=== PATIENT | female | born 1980 | race Caucasian/White ===

== ENCOUNTER 2017-01-27 21:13 | Emergency (ER) | payer SELFPAY ==
[2017-01-27] MEDS ORDERED: CATAPRES0.2 M1 PO (21:23)
[2017-01-27] MEDS ORDERED: LAMICTAL25 M2 PO (21:25)
[2017-01-27] MEDS ORDERED: SEROQUEL100 M2 PO (21:25)
== END 2017-01-27 23:24 ==
LOC: EDMED 21:13
DX: S90.31XA Contusion of right foot, initial encounter (principal); F41.9 Anxiety disorder, unspecified; F32.9 Major depressive disorder, single episode, unspecified; Z79.899 Other long term (current) drug therapy; W01.0XXA Fall on same level from slipping, tripping and stumbling without subsequent striking against object, initial encounter; Y92.59 Other trade areas as the place of occurrence of the external cause